=== PATIENT | female | born 2000 | race American Indian/Alaskan Native ===

== ENCOUNTER 2019-03-06 05:10 | Emergency (ER) | payer SELFPAY ==
[2019-03-06 05:21] VITALS: BP 141/80
[2019-03-06] MEDS ORDERED: IBUPROFEN 800 MG TAB PO ONE (07:46)
--- NOTE | 2019-03-06 07:48 | Emergency Department Report ---
- General Chief complaint: Back Pain/Injury Stated complaint: TAILBONE PAIN Time Seen by Provider: 03/06/19 07:21 Source: patient Mode of arrival: Ambulatory Limitations: No Limitations - History of Present Illness Initial comments: This is a 18-year-old female nontoxic, well nourished in appearance, no acute signs of distress presents to the ED with c/o of redness and pain to right buttock area. Patient denies any pus or drainage. Patient denies any fever, chills, nausea, vomiting, chest pain, shortness of breath, headache or stiff neck. Patient denies any allergies or significant past medical history. MD complaint: abscess/boil -: days(s) Location: buttocks Severity: mild Severity scale (0 -10): 8 Quality: aching Consistency: constant Improves with: none Worsens with: none Associated symptoms: denies other symptoms - Related Data Previous Rx's Medication Instructions Recorded Last Taken Type Acetaminophen/Codeine [Tylenol 1 tab PO Q6H PRN #12 tab 03/06/19 Unknown Rx /Codeine # 3 tab] Clindamycin [Clindamycin CAP] 300 mg PO Q8H #21 cap 03/06/19 Unknown Rx Abscess Boil HPI - HPI Chief Complaint: Back Pain/Injury Stated Complaint: TAILBONE PAIN Time Seen by Provider: 03/06/19 07:21 Home Medications: Previous Rx's Medication Instructions Recorded Last Taken Type Acetaminophen/Codeine [Tylenol 1 tab PO Q6H PRN #12 tab 03/06/19 Unknown Rx /Codeine # 3 tab] Clindamycin [Clindamycin CAP] 300 mg PO Q8H #21 cap 03/06/19 Unknown Rx ED Review of Systems ROS: Stated complaint: TAILBONE PAIN Other details as noted in HPI Constitutional: denies: chills, fever Eyes: denies: eye pain, eye discharge, vision change ENT: denies: ear pain, throat pain Respiratory: denies: cough, shortness of breath, wheezing Cardiovascular: denies: chest pain, palpitations Endocrine: no symptoms reported Gastrointestinal: denies: abdominal pain, nausea, diarrhea Genitourinary: denies: urgency, dysuria, discharge Musculoskeletal: denies: back pain, joint swelling, arthralgia Skin: denies: rash, lesions Neurological: denies: headache, weakness, paresthesias Psychiatric: denies: anxiety, depression Hematological/Lymphatic: denies: easy bleeding, easy bruising ED Past Medical Hx - Past Medical History Previous Medical History?: No - Surgical History Past Surgical History?: No - Social History Smoking Status: Former Smoker Substance Use Type: Marijuana - Medications Home Medications: Home Medications Medication Instructions Recorded Confirmed Last Taken Type Acetaminophen/Codeine [Tylenol 1 tab PO Q6H PRN #12 tab 03/06/19 Unknown Rx /Codeine # 3 tab] Clindamycin [Clindamycin CAP] 300 mg PO Q8H #21 cap 03/06/19 Unknown Rx ED Physical Exam - General Limitations: No Limitations General appearance: alert, in no apparent distress - Head Head exam: Present: atraumatic, normocephalic - Extremities Exam Extremities exam: Present: normal inspection, full ROM - Back Exam Back exam: Present: normal inspection, full ROM - Neurological Exam Neurological exam: Present: alert, oriented X3, normal gait - Psychiatric Psychiatric exam: Present: normal affect, normal mood - Skin Skin exam: Present: warm, dry, intact, normal color. Absent: rash - Other Other exam information: 2 cm x 2 cm small erythema with some swelling to right buttock area. No induration noted. Tender to touch. 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 ED Course Vital Signs 03/06/19 05:17 Temperature 99.0 F Pulse Rate 90 Respiratory 18 Rate Blood Pressure 141/80 O2 Sat by Pulse 98 Oximetry - Reevaluation(s) Reevaluation #1: 03/06/19 08:08 Patient is speaking in full sentences with no signs of distress noted. ED Medical Decision Making - Medical Decision Making This is a 18-year-old male that presents with cellulitis. Patient is stable and was examined by me. There is no induration, fluctuance. No signs of abscess. The area has been outlined with a permanent marker and patient was instructed to observe symptoms of increased redness or swelling and to return to the ER if this does occur. I will discharge patient with Clinda. Patient was referred to Follow-up with a primary care doctor in 3-5 days or if symptoms worsen and continue return to emergency room as soon as possible. At time of discharge, th e patient does not seem toxic or ill in appearance. No acute signs of distress noted. Patient agrees to discharge treatment plan of care. No further questions noted by the patient. Critical care attestation.: If time is entered above; I have spent that time in minutes in the direct care of this critically ill patient, excluding procedure time. ED Disposition Clinical Impression: Cellulitis Qualifiers: Site of cellulitis: buttock Qualified Code(s): L03.317 - Cellulitis of buttock Disposition: - TO HOME OR SELFCARE Is pt being admited?: No Does the pt Need Aspirin: No Condition: Stable Instructions: Cellulitis (ED), Acetaminophen/Codeine (By mouth) Additional Instructions: Follow-up with a primary care doctor in 3-5 days or if symptoms worsen and continue return to emergency room as soon as possible. Do not operate any machinery while taking Tylenol with codeine as this may cause drowsiness. Prescriptions: Clindamycin [Clindamycin CAP] 300 mg PO Q8H #21 cap Acetaminophen/Codeine [Tylenol /Codeine # 3 tab] 1 tab PO Q6H PRN #12 tab PRN Reason: Pain , Severe (7-10) Referrals: PRIMARY MD ISELA [Primary Care Provider] - 3-5 Days BRITT CARBALLO MD [Staff Physician] - 3-5 Days [facility] [Outside] - 3-[address] [facility] [Outside] - 3-5 Days Forms: Work/School Release Form(ED)
== END 2019-03-06 08:16 | disposition home or self-care (01) ==
LOC: ED 05:10
DX: L03.317 Cellulitis of buttock (principal); F12.10 Cannabis abuse, uncomplicated; Z87.891 Personal history of nicotine dependence